=== PATIENT | female | born 1990 | race Caucasian/White ===

== ENCOUNTER 2019-05-07 12:35 | Inpatient (IN) | payer OTHER ==
[~2019-05-07] VITALS: Ht 165.1 cm; Wt 3.2 kg
[~2019-05-07 12:35] MED LIST: PRENATAL 19 TA1 EAC1 PO
[2019-05-12] MEDS ORDERED: IRON236 MG PO (07:22)
[2019-05-12] MEDS ORDERED: PNEU16DI2 (07:23)
[2019-05-12] MEDS ORDERED: NEXIUM 24HR20 M1 PO (07:23)
[2019-05-12] MEDS ORDERED: VISTARIL25 MG PO (07:23)
[2019-05-15] MEDS ORDERED: PERCOCET 5-3251 EACH PO (09:48)
[2019-05-15] MEDS ORDERED: KETOROLAC TROME10 MG PO (09:49)
== END 2019-05-15 11:39 | DRG 788 ==
LOC: SURH 12:35 → OB/GYN 05-12 07:42 → LDR 05-12 07:42 → OB/GYN 05-12 11:58
PROVIDERS: ADMIT Obstetrics & Gynecology Maternal & Fetal Medicine
PROC: 4A1HXCZ Monitoring of Products of Conception, Cardiac Rate, External Approach (ICD-10-PCS; 2019-05-12)
PROC: 4A033R1 Measurement of Arterial Saturation, Peripheral, Percutaneous Approach (ICD-10-PCS; 2019-05-12)
PROC: 10D00Z1 Extraction of Products of Conception, Low, Open Approach (ICD-10-PCS; principal; 2019-05-12 12:30)
DX: O82 Encounter for cesarean delivery without indication (principal); Z3A.39 39 weeks gestation of pregnancy; Z37.0 Single live birth; Z22.330 Carrier of Group B streptococcus